=== PATIENT | male | born 2000 | race Caucasian/White ===

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

== ENCOUNTER 2022-10-22 20:29 | Emergency (ER) | payer MEDICAID ==
[~2022-10-22] VITALS: Ht 180.3 cm; Wt 67.2 kg
[2022-10-22 20:30] VITALS: BP 128/82; PULSE 98; RESP 18; TEMP 97.3; O2SAT 98
[2022-10-22] MEDS ORDERED: LIDOcaine 1% W/epiNEPHrine 1:100,000 20ml vial IJ ONE (20:50)
[2022-10-22] MEDS ORDERED: bacitracin 15gm ointment TP ONE (20:50)
[2022-10-22] MEDS ORDERED: TETanus/Pertussis (Acell)/Diphther VAC/PF (Tdap-Adult) 0.5ml syringe IMVAC ONE (20:50)
== END 2022-10-22 21:58 | disposition home or self-care (01) ==
LOC: ER 20:30
DX: S51.812A Laceration without foreign body of left forearm, initial encounter (principal); F15.10 Other stimulant abuse, uncomplicated; Z88.8 Allergy status to other drugs, medicaments and biological substances; Y04.8XXA Assault by other bodily force, initial encounter; Y93.89 Activity, other specified; Y92.89 Other specified places as the place of occurrence of the external cause; Y99.8 Other external cause status
CPT/HCPCS: 12002; 90471; 90715; 99283

== ENCOUNTER 2024-07-22 10:57 | Emergency (ER) | payer MEDICAID ==
[~2024-07-22] VITALS: Ht 177.8 cm; Wt 78.3 kg
[2024-07-22 11:33] VITALS: BP 127/76; PULSE 63; RESP 18; TEMP 97.7; O2SAT 98
--- NOTE | 2024-07-22 13:10 | Physician Documentation ---
History of Present Illness ~ Chief Complaint: Toe pain Stated Complaint: INGROWN TOENAIL Time Seen by MD: 11:35 Primary Medical Doctor: NONE HPI This 23-year-old male presents with left 1st toe pain reportedly from an ingrown toenail though he reports a wound to the tip of his left 1st toe as well. Patient reports no swelling or tenderness of the foot and reports no fever, chil ls, or other systemic symptoms. Patient reports no other acute symptoms or concerns. Tetanus witin 5 years: Yes Medication Reconciliation Allergies: Coded Allergies: poison oak extract (Unverified Allergy, Intermediate, 10/22/22) Scheduled Cephalexin*Monohydrate* (Keflex*), 1 CAP PO QID Sulfamethoxazole/Trimethoprim (Bactrim Ds Tablet), 1 TAB PO Q12H Past Medical History Past Medical History: No Pertinent History Past Surgical History: no surgical history Alcohol Use: None Drug Use: marijuana Lives with: Mother Lives In: Home Occupation: student Review of Systems ROS Left toe wound and pain as stated above in the HPI, otherwise all systems are reviewed and negative. Physical Exam Vital Signs: Temperature: 97.7, Source: Temporal, Heart Rate: 63, Respiratory Rate: 18, BP: 127/76, Pulse Oximetry: 98, Weight: 78.300 Physical Exam VITALS: Reviewed and as above. GENERAL: Alert, nontoxic appearing, no apparent distress. RESPIRATORY: No increased work of breathing, no respiratory distress, speaking in full clear sentences SKIN: Tip of great toe approximately 0.5 cm wound with serous drainage without bleeding or purulent discharge, tender to palpation Progress Results/Orders Results/Orders Vital Signs 07/22/24 11:33 Temp 97.7 Pulse 63 Resp 18 B/P (MAP) 127/76 Pulse Ox 98 Medical Decision Making Findings This 23 year old male presented with a wound to the tip of his left 1st toe, the tip of the toe was reddened and there was an approximately 0.5 cm open wound with serous drainage, as patient reported stated has been purulent earlier I do suspect this wound to be infected though there was no fluctuance or induration to the remainder of the toe, patient will be treated with course of antibiotics with MRSA coverage. The sides of the nail to the 1st toe did appear to be ingrown however there appeared to be no infection or erythema to the areas or it was ingrown and due to risk of infection this will not be treated today and patient will need to follow up outpatient for treatment of ingrown toenail. Remainder of physical exam was benign vital signs were stable patient is appropriate for outpatient follow up. Foot Diff Dx:Considerations: Include: Abrasion, Cellulitis, Contusion, Gout, Laceration, Neurovascular injury, Paronychia, Puncture, Septic, Subungual hematoma, Ulcer, Other (Abscess) Departure Time of Disposition: 16:08 Disposition: 01 HOME / SELF CARE / HOMELESS Impression: Primary Impression: Wound, open, toe Qualified Codes: S91.109A - Unspecified open wound of unspecified toe(s) without damage to nail, initial encounter Condition: Improved Discharge Instructions: Abscess, Care After Additional Instructions: Use a warm compress or soak the area and then clean it at least twice a day to encourage drainage until the wound begins to heal, take antibiotics as prescribed. Please follow up with your primary care provider in the next few days for wound recheck and to address your ingrown toenail. Please return to the emergency department for any new or worsening concerning symptoms including but not limited to spread of the pain and swelling, or if you develop a fever. Referrals: NO PRIMARY CARE PROVIDER (PCP) Prescriptions Sulfamethoxazole/Trimethoprim (Bactrim Ds Tablet) 800 Mg-160 Mg Tablet 1 TAB PO Q12H for 5 Days, #10 TAB Prov: BRANDY RESENDEZP 07/22/24 Cephalexin*Monohydrate* (Keflex*) 500 Mg Capsule 1 CAP PO QID for 5 Days, #20 CAP Prov: BRANDY RESENDEZ [facility] 07/22/24 Education Educated: Patient Educated regarding: diagnosis, treatment, prognosis, need for follow up Signature Scribe Signature: No scribe Attestation: The note accurately reflects work and decisions made by me.KEMAR Duke 07/22/24 22:27 BRANDY RESENDEZ Jul 22, 2024 13:10
[2024-07-22] MEDS ORDERED: SULF1TAB49 PO (16:09)
[2024-07-22] MEDS ORDERED: CEPH-585 PO (16:09)
== END 2024-07-22 16:25 | disposition home or self-care (01) ==
LOC: ER 10:58
DX: S91.102A Unspecified open wound of left great toe without damage to nail, initial encounter (principal); F12.90 Cannabis use, unspecified, uncomplicated; X58.XXXA Exposure to other specified factors, initial encounter; Y93.89 Activity, other specified; Y92.89 Other specified places as the place of occurrence of the external cause; Y99.8 Other external cause status
CPT/HCPCS: 99283